=== PATIENT | female | born 1975 | race Caucasian/White ===

== ENCOUNTER 2020-08-11 19:57 | Inpatient (IN) | payer OTHER ==
[~2020-08-11] VITALS: Ht 160 cm; Wt 84.4 kg
[2020-08-11 20:49] VITALS: Ht 160 cm; Wt 84.4 kg
[2020-08-12 00:15] LABS: BASOPHIL % 0.4 % (0.2-1.3); PLATELET COUNT 356 x10^3mcL (179-408); RED CELL DISTRIBUTION WIDTH 12.8 % (12.3-17.7)
[2020-08-12 03:22] LABS: UA SPECIFIC GRAVITY 1.015 (1.005-1.035); microscopic required? YES; urine erythrocyte 2+ (NEGATIVE)
[2020-08-12 03:51] LABS: ALBUMIN 3.9 g/dL (3.4-5.0); ALKALINE PHOSPHATASE 40 U/L (46-116); ALT/SGPT 67 U/L (14-59); AST/SGOT 28 U/L (15-37); BILIRUBIN TOTAL 0.38 mg/dL (0.20-1.00); CALCIUM 9.2 mg/dL (8.5-10.1); CARBON DIOXIDE 23.3 mmol/L (21-32); CHLORIDE SERUM 104 mmol/L (98-107); CREATININE SERUM 0.8 mg/dL (0.6-1.0); GFR1 > 60 mL/min; GLUCOSE SERUM 139 mg/dL (74-106); POTASSIUM SERUM 4.2 mmol/L (3.5-5.1); SODIUM SERUM 137 mmol/L (136-145); TOTAL PROTEIN, SERUM 7.3 g/dL (6.4-8.2)
[2020-08-12 17:11] VITALS: BP 139/85
[2020-08-12 21:28] VITALS: BP 156/93
[2020-08-13 05:00] VITALS: BP 140/90
[2020-08-13 08:34] VITALS: BP 144/92
[2020-08-13 09:14] LABS: BASOPHIL % 1.1 % (0.2-1.3); PLATELET COUNT 282 x10^3mcL (179-408); RED CELL DISTRIBUTION WIDTH 12.9 % (12.3-17.7)
[2020-08-13 09:26] LABS: CALCIUM 8.3 mg/dL (8.5-10.1); CARBON DIOXIDE 23.7 mmol/L (21-32); CHLORIDE SERUM 108 mmol/L (98-107); CREATININE SERUM 0.7 mg/dL (0.6-1.0); GFR1 > 60 mL/min; GLUCOSE SERUM 88 mg/dL (74-106); POTASSIUM SERUM 3.7 mmol/L (3.5-5.1); SODIUM SERUM 142 mmol/L (136-145)
[2020-08-13 12:12] VITALS: BP 149/105
[2020-08-13 17:05] VITALS: BP 150/89
[2020-08-13 19:20] VITALS: BP 149/84
[2020-08-14 05:05] VITALS: BP 124/83
[2020-08-14 12:26] VITALS: BP 153/94
[2020-08-14] MEDS ORDERED: CIPRO500 MG PO (14:51)
[2020-08-14 15:04] LABS: BASOPHIL % 0.2 % (0.2-1.3); PLATELET COUNT 343 x10^3mcL (179-408); RED CELL DISTRIBUTION WIDTH 12.9 % (12.3-17.7)
[2020-08-14 15:08] LABS: CALCIUM 8.8 mg/dL (8.5-10.1); CARBON DIOXIDE 26.2 mmol/L (21-32); CHLORIDE SERUM 107 mmol/L (98-107); CREATININE SERUM 0.7 mg/dL (0.6-1.0); GFR1 > 60 mL/min; GLUCOSE SERUM 146 mg/dL (74-106); POTASSIUM SERUM 4.1 mmol/L (3.5-5.1); SODIUM SERUM 144 mmol/L (136-145)
[2020-08-14 15:30] VITALS: BP 153/94
== END 2020-08-14 16:35 | disposition home or self-care (01) | DRG 661 ==
LOC: ED 19:57 → MU 08-12 01:08
PROVIDERS: Emergency Medicine; Urology; ADMIT Internal Medicine; ATTEND Internal Medicine
PROC: BT1D1ZZ Fluoroscopy of Right Kidney, Ureter and Bladder using Low Osmolar Contrast (ICD-10-PCS; 2020-08-14)
PROC: 0T768DZ Dilation of Right Ureter with Intraluminal Device, Via Natural or Artificial Opening Endoscopic (ICD-10-PCS; principal; 2020-08-14 07:30)
DX: N13.6 Pyonephrosis (principal); Z82.49 Family history of ischemic heart disease and other diseases of the circulatory system; D72.829 Elevated white blood cell count, unspecified; K57.90 Diverticulosis of intestine, part unspecified, without perforation or abscess without bleeding; Z20.822 Contact with and (suspected) exposure to COVID-19
CPT/HCPCS: 51610; C1769; C2625; G0378; J0696; J1644; J1885; J2175; J2405; J2704; J3010; J3490; J7030; J7120; Q9967; U0003

== ENCOUNTER 2020-09-04 06:15 | Day surgery (SDC) | payer OTHER ==
[2020-08-31 15:56] LABS: BASOPHIL % 0.8 % (0.2-1.3); PLATELET COUNT 361 x10^3mcL (179-408); RED CELL DISTRIBUTION WIDTH 12.7 % (12.3-17.7)
[2020-08-31 16:24] LABS: ALBUMIN 4.1 g/dL (3.4-5.0); ALKALINE PHOSPHATASE 40 U/L (46-116); ALT/SGPT 50 U/L (14-59); AST/SGOT 22 U/L (15-37); BILIRUBIN TOTAL 0.2 mg/dL (0.20-1.00); CARBON DIOXIDE 26.4 mmol/L (21-32); CHLORIDE SERUM 107 mmol/L (98-107); CREATININE SERUM 0.9 mg/dL (0.6-1.0); GFR1 > 60 mL/min; GLUCOSE SERUM 107 mg/dL (74-106); SODIUM SERUM 144 mmol/L (136-145); TOTAL PROTEIN, SERUM 7.5 g/dL (6.4-8.2)
[2020-08-31 16:34] LABS: POTASSIUM SERUM 5.7 mmol/L (3.5-5.1)
--- NOTE | 2020-08-31 16:42 | NUR ---
COPIES OF LAB RESULTS (POTASSIUM LEVEL 5.7) AND EKG WERE FAXED TO DR. GLYNN'S OFFICE AND SENT TO OR-ANESTHESIOLOGIST TO REVIEW.
[~2020-09-04] VITALS: Ht 160 cm; Wt 82.5 kg
[~2020-09-04 06:15] MED LIST: CIPRO500 MG PO
[2020-09-04 06:37] VITALS: BP 145/94
[2020-09-04 08:16] LABS: CALCIUM 9.1 mg/dL (8.5-10.1); CARBON DIOXIDE 26.6 mmol/L (21-32); CHLORIDE SERUM 105 mmol/L (98-107); CREATININE SERUM 0.7 mg/dL (0.6-1.0); GFR1 > 60 mL/min; GLUCOSE SERUM 93 mg/dL (74-106); POTASSIUM SERUM 4.3 mmol/L (3.5-5.1); SODIUM SERUM 142 mmol/L (136-145)
[2020-09-04 10:48] VITALS: BP 144/84
== END 2020-09-04 10:30 | disposition home or self-care (01) ==
LOC: DS 06:15 → OR 07:30 → DS 10:30
PROVIDERS: ATTEND Urology
DX: N20.1 Calculus of ureter (principal); E66.3 Overweight; Z68.32 Body mass index [BMI] 32.0-32.9, adult
CPT/HCPCS: C1758; C2625; J0696; J3010; Q9967